=== PATIENT | female | born 1960 | race American Indian/Alaskan Native ===

== ENCOUNTER 2019-04-06 12:05 | Outpatient (CLI) | payer OTHER ==
[2019-04-09 11:17] LABS: Vitamin D, 25-OH, D2 <4 ng/mL
== END 2019-04-06 12:06 | disposition home or self-care (01) ==
LOC: LAB 12:05
PROVIDERS: ATTEND Specialist
DX: M79.7 Fibromyalgia (principal)
CPT/HCPCS: 36415; 82306; 82607; 83921; 84443; 86592